=== PATIENT | male | born 1975 | race Caucasian/White ===

== ENCOUNTER 2017-10-30 11:24 | Emergency (ER) | payer OTHER, MEDICAID | END 2017-10-30 13:03 | disposition home or self-care (01) | LOC: M ED 11:24 | DX: M25.572 Pain in left ankle and joints of left foot (principal); F17.200 Nicotine dependence, unspecified, uncomplicated; Z88.0 Allergy status to penicillin | CPT/HCPCS: 73610 ==

== ENCOUNTER → 2017-11-22 | Outpatient (CLI) | payer OTHER | LOC: M RAD 17:05 | DX: S93.402A Sprain of unspecified ligament of left ankle, initial encounter (principal); X58.XXXA Exposure to other specified factors, initial encounter; Y92.89 Other specified places as the place of occurrence of the external cause | CPT/HCPCS: 73721 ==

== ENCOUNTER 2023-03-29 12:00 | Inpatient (IN) | payer OTHER ==
[~2023-03-29] VITALS: Ht 170.2 cm; Wt 90.9 kg
[~2023-03-29 12:00] MED LIST: HYDR-3715 PO; IBUP-1022 PO; TYLE325T5 PO
[2023-03-29 13:11] LABS: BASO # 0.1 10^3/uL (0.0-0.2); BASO % 0.4 % (0.0-1.0); EOS # 0.1 10^3/uL (0.0-0.5); EOS % 0.7 % (0.0-3.0); HEMATOCRIT 49.6 % (42.0-52.0); HEMOGLOBIN 16.6 g/dl (13.5-17.5); LYMPH # 2.3 10^3/uL (1.5-5.0); LYMPH % 15.1 % (24.0-44.0); MEAN CORPUSCULAR HEMOGLOBIN 30.6 pg (27.0-33.0); MEAN CORPUSCULAR HGB CONC 33.5 g/dl (32.0-36.5); MEAN CORPUSCULAR VOLUME 91.3 fl (80.0-96.0); MONO # 0.7 10^3/uL (0.0-0.8); MONO % 4.8 % (2.0-8.0); NEUTROPHILS # 11.9 10^3/uL (1.5-8.5); NEUTROPHILS % 78.4 % (36.0-66.0); PLATELET COUNT, AUTOMATED 203 10^3/uL (150-450); RED BLOOD COUNT 5.43 10^6/uL (4.30-6.10); WHITE BLOOD COUNT 15.2 10^3/uL (4.0-10.0)
[2023-03-29] MEDS ORDERED: ONDANSETRON 4MG 2ML VIAL IV ONE ×2 (13:15→16:05)
[2023-03-29] MEDS ORDERED: PANTOPRAZOLE 40MG VIAL IV ONE (13:15)
[2023-03-29] MEDS ORDERED: NS 1,000 ML IV SCH (13:15)
[2023-03-29] MEDS ORDERED: MORPHINE 4 MG/ML 1ML VIAL IV ONE (13:15)
[2023-03-29] MEDS ORDERED: ISOVUE-370 76% 100ML VIAL As Ordered ONE (13:20)
[2023-03-29 13:38] LABS: LIPASE 23 U/L (12-53)
[2023-03-29 13:40] LABS: AMYLASE 30 U/L (30-118); CPK CREATINE PHOSPHOKINASE 116 U/L (46-171)
[2023-03-29 13:41] LABS: ALBUMIN 4.1 G/DL (3.2-5.2); ALKALINE PHOSPHATASE 139 U/L (46-116); ALT/SGPT 16 U/L (7.0-40); AST/SGOT 9 U/L (<34); BILIRUBIN,DIRECT 0.2 MG/DL (<0.4); BILIRUBIN,TOTAL 0.5 MG/DL (0.3-1.2); BLOOD UREA NITROGEN 16 MG/DL (9-23); CALCIUM LEVEL 9.8 MG/DL (8.5-10.1); CARBON DIOXIDE LEVEL 31 MMOL/L (20-31); CHLORIDE LEVEL 103 MMOL/L (98-107); CK-MB VALUE MASS 4.7 NG/ML (<3.6); CREATININE FOR GFR 0.67 MG/DL (0.70-1.30); GLOMERULAR FILTRATION RATE > 60.0 (>60); GLUCOSE, FASTING 117 MG/DL (60-100); MB/CK RELATIVE INDEX 4.05 (< OR =4); POTASSIUM SERUM 3.4 MMOL/L (3.5-5.1); SODIUM LEVEL 141 MMOL/L (136-145); TOTAL PROTEIN 6.8 G/DL (5.7-8.2)
[2023-03-29 16:48] LABS: RSV AMPLIFICATION NEGATIVE (NEGATIVE)
[2023-03-29] MEDS ORDERED: HOME MED LIST COMPLETE! XX SCH (17:00)
[2023-03-29] MEDS ORDERED: BUPIVACAINE/EPIN 0.25% 30ML VIAL As Ordered ONE (17:31)
[2023-03-29] MEDS ORDERED: LIDOCAINE 2% 100MG/5ML SDV (FOR ANES.) As Ordered ONE (18:00)
[2023-03-29] MEDS ORDERED: propofoL 200 MG/20 ML VIAL As Ordered ONE (18:00)
[2023-03-29] MEDS ORDERED: ROCURONIUM BROMIDE 50MG/5ML VIAL As Ordered ONE ×2 (18:01→19:03)
[2023-03-29] MEDS ORDERED: fentaNYL 250 MCG/5 ML INJECTION As Ordered ONE (18:01)
[2023-03-29] MEDS ORDERED: MIDAZOLAM INJ 2MG/2ML VIAL As Ordered ONE (18:03)
[2023-03-29] MEDS ORDERED: CLINDAMYCIN 900MG/50ML PREMIX BAG As Ordered ONE (18:37)
[2023-03-29] MEDS ORDERED: ACETAMINOPHEN 1000MG 100ML IV BAG As Ordered ONE ×2 (18:37→18:38)
[2023-03-29] MEDS ORDERED: ONDANSETRON 4MG 2ML VIAL As Ordered ONE (19:04)
[2023-03-29] MEDS ORDERED: SUGAMMADEX SODIUM 500 MG/5 ML VIAL (BRIDION) As Ordered ONE (19:04)
[2023-03-29] MEDS ORDERED: SUCCINYLCHOLINE 100MG/5ML SYRINGE As Ordered ONE (19:04)
[2023-03-29] MEDS ORDERED: KETOROLAC 60MG 2ML VIAL As Ordered ONE (19:20)
[2023-03-29] MEDS ORDERED: METOCLOPRAMIDE INJ 10MG/2ML VIAL IV PRN (19:40)
[2023-03-29] MEDS ORDERED: fentaNYL 100 MCG/2 ML INJECTION IV PRN (19:40)
[2023-03-29] MEDS ORDERED: HYDROMORPHONE HCL 0.5 MG/ 0.5 ML SYRINGE IV PRN (19:40)
[2023-03-29] MEDS ORDERED: LR 1,000 ML IV SCH (19:40)
[2023-03-29] MEDS ORDERED: ONDANSETRON 4MG 2ML VIAL IV PRN ×2 (19:40→19:50)
[2023-03-29 20:51] VITALS: BP 154/104; TEMP 97.1; O2SAT 98
[2023-03-29 21:25] VITALS: BP 168/103; TEMP 97; O2SAT 95
[2023-03-29] MEDS: SENOKOT S TAB PO SCH (21:33)
[2023-03-29] MEDS: NS 1,000 ML IV SCH (21:33)
[2023-03-29] MEDS: NICOTINE 21MG/24HR 1 EA TRANSDERMAL TD SCH (21:35)
[2023-03-29 22:29] VITALS: BP 148/93; TEMP 95.9; O2SAT 93
[2023-03-29 23:19] VITALS: BP 163/99; TEMP 96.5; O2SAT 95
[2023-03-30 00:32] VITALS: BP 143/90; TEMP 96.5; O2SAT 91
[2023-03-30] MEDS: MORPHINE 2 MG/ML 1ML VIAL IV PRN ×2 (01:50→07:18)
[2023-03-30] MEDS: KETOROLAC 30 MG/ML 1ML VIAL IV PRN ×3 (02:41→20:01)
[2023-03-30] MEDS: NS 1,000 ML IV SCH ×3 (04:31→21:00)
[2023-03-30 06:21] LABS: HEMATOCRIT 41.7 % (42.0-52.0); MEAN CORPUSCULAR HEMOGLOBIN 30.8 pg (27.0-33.0); MEAN CORPUSCULAR HGB CONC 33.8 g/dl (32.0-36.5); PLATELET COUNT, AUTOMATED 187 10^3/uL (150-450); RED BLOOD COUNT 4.58 10^6/uL (4.30-6.10); WHITE BLOOD COUNT 10.6 10^3/uL (4.0-10.0)
[2023-03-30 06:28] LABS: HEMOGLOBIN 14.1 g/dl (13.5-17.5)
[2023-03-30 06:29] LABS: INR 0.99; PROTHROMBIN TIME 13.3 SECONDS (12.5-14.5)
[2023-03-30 06:33] LABS: ALBUMIN 2.9 G/DL (3.2-5.2); ALKALINE PHOSPHATASE 104 U/L (46-116); ALT/SGPT 11 U/L (7.0-40); AST/SGOT < 8 U/L (<34); BILIRUBIN,TOTAL 0.7 MG/DL (0.3-1.2); BLOOD UREA NITROGEN 15 MG/DL (9-23); CALCIUM LEVEL 8.2 MG/DL (8.5-10.1); CARBON DIOXIDE LEVEL 26 MMOL/L (20-31); CHLORIDE LEVEL 106 MMOL/L (98-107); CREATININE FOR GFR 0.57 MG/DL (0.70-1.30); GLOMERULAR FILTRATION RATE > 60.0 (>60); GLUCOSE, FASTING 117 MG/DL (60-100); POTASSIUM SERUM 4.2 MMOL/L (3.5-5.1); SODIUM LEVEL 139 MMOL/L (136-145); TOTAL PROTEIN 5.2 G/DL (5.7-8.2)
[2023-03-30 06:37] VITALS: BP 136/81; TEMP 97.3; O2SAT 95
[2023-03-30] MEDS ORDERED: PANTOPRAZOLE 40MG VIAL IV SCH (09:00)
[2023-03-30] MEDS: SENOKOT S TAB PO SCH ×2 (09:19→20:01)
[2023-03-30] MEDS: ENOXAPARIN 40MG/0.4ML SYRINGE (J1650 PER 10MG) SC SCH (09:21)
[2023-03-30] MEDS: NICOTINE 21MG/24HR 1 EA TRANSDERMAL TD SCH (09:22)
[2023-03-30] MEDS: PANTOPRAZOLE 40MG VIAL IV SCH (13:08)
[2023-03-30 14:00] VITALS: BP 136/73; TEMP 98.2; O2SAT 97
[2023-03-30 20:05] VITALS: BP 155/81; TEMP 98.5; O2SAT 96
[2023-03-31] MEDS: MORPHINE 2 MG/ML 1ML VIAL IV PRN ×5 (00:14→21:06)
[2023-03-31] MEDS: KETOROLAC 30 MG/ML 1ML VIAL IV PRN ×3 (04:44→18:45)
[2023-03-31] MEDS: NS 1,000 ML IV SCH ×3 (04:44→21:06)
[2023-03-31 04:55] VITALS: BP 147/81; TEMP 97; O2SAT 98
[2023-03-31] MEDS: ENOXAPARIN 40MG/0.4ML SYRINGE (J1650 PER 10MG) SC SCH (08:11)
[2023-03-31] MEDS: NICOTINE 21MG/24HR 1 EA TRANSDERMAL TD SCH (08:12)
[2023-03-31] MEDS: SENOKOT S TAB PO SCH ×2 (11:27→19:32)
[2023-03-31] MEDS: PANTOPRAZOLE 40MG VIAL IV SCH (13:01)
[2023-03-31 14:00] VITALS: BP 135/78; TEMP 98.1; O2SAT 95
[2023-03-31 20:55] VITALS: BP 144/83; TEMP 98.4; O2SAT 95
[2023-03-31] MEDS ORDERED: MORPHINE 2 MG/ML 1ML VIAL IV ONE (22:40)
[2023-04-01] MEDS: KETOROLAC 30 MG/ML 1ML VIAL IV PRN ×4 (00:51→21:29)
[2023-04-01] MEDS: NS 1,000 ML IV SCH ×3 (04:50→21:51)
[2023-04-01] MEDS: MORPHINE 2 MG/ML 1ML VIAL IV PRN ×4 (04:51→23:26)
[2023-04-01 06:51] VITALS: BP 118/74; TEMP 97.9; O2SAT 94
[2023-04-01 07:08] LABS: HEMATOCRIT 39.2 % (42.0-52.0); HEMOGLOBIN 12.8 g/dl (13.5-17.5); MEAN CORPUSCULAR HEMOGLOBIN 30.1 pg (27.0-33.0); MEAN CORPUSCULAR HGB CONC 32.7 g/dl (32.0-36.5); MEAN CORPUSCULAR VOLUME 92.2 fl (80.0-96.0); PLATELET COUNT, AUTOMATED 134 10^3/uL (150-450); RED BLOOD COUNT 4.25 10^6/uL (4.30-6.10)
[2023-04-01 07:38] LABS: ALBUMIN 2.8 G/DL (3.2-5.2); ALKALINE PHOSPHATASE 93 U/L (46-116); ALT/SGPT 9 U/L (7.0-40); AST/SGOT < 8 U/L (<34); BILIRUBIN,TOTAL 0.8 MG/DL (0.3-1.2); BLOOD UREA NITROGEN 17 MG/DL (9-23); CALCIUM LEVEL 8.1 MG/DL (8.5-10.1); CARBON DIOXIDE LEVEL 24 MMOL/L (20-31); CHLORIDE LEVEL 106 MMOL/L (98-107); CREATININE FOR GFR 0.54 MG/DL (0.70-1.30); GLOMERULAR FILTRATION RATE > 60.0 (>60); GLUCOSE, FASTING 73 MG/DL (60-100); POTASSIUM SERUM 3.5 MMOL/L (3.5-5.1); SODIUM LEVEL 140 MMOL/L (136-145)
[2023-04-01] MEDS: ENOXAPARIN 40MG/0.4ML SYRINGE (J1650 PER 10MG) SC SCH (08:37)
[2023-04-01] MEDS: SENOKOT S TAB PO SCH ×2 (08:37→21:29)
[2023-04-01] MEDS: NICOTINE 21MG/24HR 1 EA TRANSDERMAL TD SCH (08:38)
[2023-04-01] MEDS: PANTOPRAZOLE 40MG VIAL IV SCH (13:46)
[2023-04-01 14:00] VITALS: BP 158/81; TEMP 99.6; O2SAT 97
[2023-04-01 22:15] VITALS: BP 141/76; TEMP 99.1; O2SAT 96
[2023-04-02] MEDS: MORPHINE 2 MG/ML 1ML VIAL IV PRN ×3 (04:14→19:23)
[2023-04-02 06:00] VITALS: TEMP 98.5
[2023-04-02] MEDS: NS 1,000 ML IV SCH ×3 (06:08→22:03)
[2023-04-02] MEDS: KETOROLAC 30 MG/ML 1ML VIAL IV PRN ×3 (06:08→22:17)
[2023-04-02 06:18] LABS: HEMATOCRIT 34.8 % (42.0-52.0); HEMOGLOBIN 11.7 g/dl (13.5-17.5); MEAN CORPUSCULAR HEMOGLOBIN 30.8 pg (27.0-33.0); MEAN CORPUSCULAR HGB CONC 33.6 g/dl (32.0-36.5); MEAN CORPUSCULAR VOLUME 91.6 fl (80.0-96.0); PLATELET COUNT, AUTOMATED 124 10^3/uL (150-450); WHITE BLOOD COUNT 9.3 10^3/uL (4.0-10.0)
[2023-04-02 06:44] LABS: ALBUMIN 2.8 G/DL (3.2-5.2); ALKALINE PHOSPHATASE 90 U/L (46-116); ALT/SGPT 10 U/L (7.0-40); AST/SGOT 9 U/L (<34); BILIRUBIN,TOTAL 0.8 MG/DL (0.3-1.2); BLOOD UREA NITROGEN 13 MG/DL (9-23); CALCIUM LEVEL 8.1 MG/DL (8.5-10.1); CARBON DIOXIDE LEVEL 24 MMOL/L (20-31); CHLORIDE LEVEL 107 MMOL/L (98-107); GLOMERULAR FILTRATION RATE > 60.0 (>60); GLUCOSE, FASTING 82 MG/DL (60-100); POTASSIUM SERUM 3.6 MMOL/L (3.5-5.1); SODIUM LEVEL 141 MMOL/L (136-145); TOTAL PROTEIN 4.9 G/DL (5.7-8.2)
[2023-04-02] MEDS: SENOKOT S TAB PO SCH ×2 (08:19→20:30)
[2023-04-02] MEDS: ENOXAPARIN 40MG/0.4ML SYRINGE (J1650 PER 10MG) SC SCH (08:19)
[2023-04-02] MEDS: NICOTINE 21MG/24HR 1 EA TRANSDERMAL TD SCH (08:19)
[2023-04-02] MEDS: PANTOPRAZOLE 40MG VIAL IV SCH (13:52)
[2023-04-02 14:00] VITALS: BP 137/82; TEMP 98; O2SAT 99
[2023-04-02 22:00] VITALS: BP 135/84; TEMP 98.5; O2SAT 99
[2023-04-03] MEDS: KETOROLAC 30 MG/ML 1ML VIAL IV PRN (05:35)
[2023-04-03] MEDS: NS 1,000 ML IV SCH (05:38)
[2023-04-03 06:00] VITALS: BP 131/72; TEMP 99.6; O2SAT 98
[2023-04-03 07:15] LABS: HEMATOCRIT 32.6 % (42.0-52.0); MEAN CORPUSCULAR HEMOGLOBIN 30.7 pg (27.0-33.0); MEAN CORPUSCULAR HGB CONC 33.7 g/dl (32.0-36.5); MEAN CORPUSCULAR VOLUME 91.1 fl (80.0-96.0); PLATELET COUNT, AUTOMATED 131 10^3/uL (150-450); RED BLOOD COUNT 3.58 10^6/uL (4.30-6.10); WHITE BLOOD COUNT 10.8 10^3/uL (4.0-10.0)
[2023-04-03 07:37] LABS: ALBUMIN 2.7 G/DL (3.2-5.2); ALKALINE PHOSPHATASE 84 U/L (46-116); ALT/SGPT 12 U/L (7.0-40); AST/SGOT 10 U/L (<34); BILIRUBIN,TOTAL 0.7 MG/DL (0.3-1.2); BLOOD UREA NITROGEN 11 MG/DL (9-23); CALCIUM LEVEL 7.7 MG/DL (8.5-10.1); CARBON DIOXIDE LEVEL 26 MMOL/L (20-31); CHLORIDE LEVEL 106 MMOL/L (98-107); GLOMERULAR FILTRATION RATE > 60.0 (>60); GLUCOSE, FASTING 99 MG/DL (60-100); POTASSIUM SERUM 3.3 MMOL/L (3.5-5.1); SODIUM LEVEL 141 MMOL/L (136-145); TOTAL PROTEIN 4.7 G/DL (5.7-8.2)
[2023-04-03] MEDS ORDERED: POTASSIUM CHLORIDE 10MEQ SR TABLET PO ONE (08:40)
[2023-04-03] MEDS: SENOKOT S TAB PO SCH (09:43)
[2023-04-03] MEDS: NICOTINE 21MG/24HR 1 EA TRANSDERMAL TD SCH (09:44)
[2023-04-03] MEDS: ENOXAPARIN 40MG/0.4ML SYRINGE (J1650 PER 10MG) SC SCH (09:45)
== END 2023-04-03 12:15 | disposition home or self-care (01) | DRG 221 ==
LOC: M ED 12:00 → EDBD 12:00 → M ED INP 17:40 → ENRESERV 19:43 → M MS5PR 20:45
PROVIDERS: ADMIT Surgery; ATTEND Surgery
PROC: 0DB80ZZ Excision of Small Intestine, Open Approach (ICD-10-PCS; 2023-03-29)
PROC: 0DNU4ZZ Release Omentum, Percutaneous Endoscopic Approach (ICD-10-PCS; principal; 2023-03-29 17:45)
DX: K46.0 Unspecified abdominal hernia with obstruction, without gangrene (principal); K55.019 Acute (reversible) ischemia of small intestine, extent unspecified; E87.6 Hypokalemia; F17.200 Nicotine dependence, unspecified, uncomplicated; Z88.0 Allergy status to penicillin